=== PATIENT | female | born 1960 | race Caucasian/White ===

== ENCOUNTER → 2023-07-06 08:02 | Outpatient (REF) | payer BC, SELFPAY | LOC: WDC 08:02 | PROVIDERS: ATTENDING PHYSICIAN Obstetrics & Gynecology; FAMILY PHYSICIAN Family Medicine | DX: Z12.31 Encounter for screening mammogram for malignant neoplasm of breast (principal) | CPT/HCPCS: 77063; 77067 ==

== ENCOUNTER → 2024-01-01 14:26 | Outpatient (REF) | payer BC, SELFPAY | LOC: RCS 14:26 | PROVIDERS: ATTENDING PHYSICIAN Internal Medicine Cardiovascular Disease; FAMILY PHYSICIAN Family Medicine | DX: I49.3 Ventricular premature depolarization (principal) | CPT/HCPCS: 93306 ==

== ENCOUNTER → 2024-01-09 08:16 | Outpatient (REF) | payer BC, SELFPAY ==
[2024-01-09 11:15] LABS: ALT (SGPT) 29 U/L (0-35); AST (SGOT) 32 U/L (14-36); Albumin 4.8 g/dl (3.5-5.0); Alkaline Phosphatase 122 U/L (38-126); Blood Urea Nitrogen 18 mg/dl (7-17); Calcium 9.9 mg/dl (8.4-10.2); Carbon Dioxide 25 mmol/L (22-30); Chloride 106 mmol/L (98-107); Glucose 99 mg/dl (70-99); HDL Cholesterol 79 mg/dl; LDL Cholesterol, Calculated 187 mg/dl; Potassium 4.7 mmol/L (3.5-5.1); Sodium 145 mmol/L (135-145); Total Bilirubin 0.9 mg/dl (0.2-1.3); Total Cholesterol 303 mg/dl (50-199); Total Protein 7.7 g/dl (6.3-8.2); Triglyceride 189 mg/dl (10-149); Very Low Density Lipoprotein 37 mg/dl (0-30); eGFR > 60.00
== END ==
LOC: REG 08:16
PROVIDERS: ATTENDING PHYSICIAN Family Medicine
DX: Z00.00 Encounter for general adult medical examination without abnormal findings (principal); K75.81 Nonalcoholic steatohepatitis (NASH); F33.1 Major depressive disorder, recurrent, moderate; I49.3 Ventricular premature depolarization; Z85.048 Personal history of other malignant neoplasm of rectum, rectosigmoid junction, and anus
CPT/HCPCS: 36415; 80053; 80061

== ENCOUNTER 2024-03-19 06:16 | Day surgery (SDC) | payer BC, SELFPAY ==
[2024-03-10 09:03] VITALS: BMI 26.8
--- NOTE | 2024-03-10 09:15 | HPS.HSE ---
Family Physician
-
Family Physician: Shailesh Curry
Chief Complaint
-
Frequent PVCs.
History of Present Illness
The patient is a 64 year old female presenting today with frequent PVCs. The patient reports a history of significant palpitations secondary to this diagnosis. Her most recent 5 day event monitor in November 2022 demonstrated a 20% PVC burden.
She is currently off calcium channel blockers and rate controlling agents. She notes that her palpitations greatly interfere with her activities of daily living and overall impact her quality of life. She is interested in pursuing an EP study with
possible PVC ablation. She denies any current complaints today such as chest pain, shortness of breath, nausea, vomiting, diarrhea, lightheadedness, dizziness, cough, sore throat, or fever.
Medical History
Past Medical History
Past Medical History: Reports Other
Additional Past Medical History:
1. Frequent PVCs.
2. Hyperlipidemia.
3. Mild aortic regurgitation.
4. Chronic dyspnea with exertion.
5. Colon polyps.
6. Diverticulosis.
7. Cholelithiasis, asymptomatic.
8. Fatty liver disease.
9. Hemorrhoids, status post hemorrhoidectomy.
10. Carcinoid tumor of rectum, status post resection 2011.
11. Vertigo.
12. Osteopenia.
13. Anxiety.
14. History of tobacco abuse.
Past Surgical History: Reports Other
Additional Past Surgical History:
1. Carcinoid tumor resection.
2. Hemorrhoidectomy.
3. .
4. Colonoscopy x5.
Social History
Tobacco: Former Smoker (She is a former 1 pack per day cigarette smoker who quit tobacco altogether at 44 years of age. )
Alcohol: Other (Rare. )
Personal:
Living: Other (She lives with her in a 2 story home. )
Family History
Family History: Not pertinent
Allergies / Home Medications
Allergy/Medication List:
Home medications:
1. Ibuprofen 400 mg p.o. every 6 hours as needed.
2. Lorazepam 0.5 mg p.o. daily as needed.
3. Sertraline 150 mg p.o. daily.
Allergies: No known drug allergies.
Review of Systems
-
A 12 point ROS was completed and negative except as noted: Yes
Physical Exam
Vital Signs
Blood pressure 129/84, heart rate 64, respirations 18, pulse ox 99% on room air.
Height 5 feet, 2 inches. Weight 66.3 kg. BMI 26.7.
Physical Exam
General: Well Developed, Well Nourished and No Apparent Distress
HEENT: NormoCephalic, Moist mucous membranes, Atraumatic and PERRLA
Respiratory: Clear
Cardiac: Regular Rhythm (with frequent ectopy. )
GI: Soft, Non Tender and Non Distended
Musculoskeletal: Normal Gait & Station
Skin: Warm and Dry
Neuro: AO x 3 and Nonfocal/grossly intact
Laboratory Results
-
DIAGNOSTIC STUDIES as of 03/10/2024: White blood cell count 7.6. Hemoglobin 14.3. Platelet count 286,000. Sodium 142. Potassium 4.3. BUN 19. Creatinine 0.7. Glucose 99. Magnesium 2.1. Calcium 10.1. AST 30. ALT 30. Albumin 4.9.
EKG 03/10/2024: Sinus rhythm with frequent PVCs. ST and T wave abnormality, consider anterior ischemia.
Echocardiogram 01/01/2024: Normal left ventricular size, wall thickness and systolic function. No regional wall motion abnormalities are seen. LV ejection fraction is 55%. Mild aortic regurgitation. Compared to echocardiogram from November 16, 2022,
there is no significant change.
Nuclear stress test 11/06/2022: Negative for ischemia. Fixed defect in the apical anterior and apex segments consistent with soft tissue attenuation. The ejection fraction is 54%. This is a low risk study.
Impression/Plan
-
IMPRESSION/PLAN:
1. Frequent PVCs: The patient is in need of an EP study and possible PVC ablation with Dr. Marquise Dwyer on 03/19/2024. The benefits and risks of the procedure have been explained to the patient. The patient understands these risks and wishes to
proceed.
[2024-03-10 09:33] LABS: % Basophils 0.8 % (0-2); % Eosinophils 4.7 % (0-6); % Immature Granulocytes 0.4 % (0-0.5); % Monocytes 5.1 % (1.7-9.3); Absolute Basophils 0.1 10^3/uL (0-0.2); Absolute Eosinophils 0.4 10^3/uL (0-0.7); Absolute Lymphocytes 2.8 10^3/uL (1.2-3.4); Absolute Monocytes 0.4 10^3/uL (0.1-0.6); Hematocrit 41.7 % (37.0-47.0); Hemoglobin 14.3 g/dL (12.0-16.0); Mean Corp Hgb Conc. 34.3 g/dL (33.0-37.0); Mean Corpuscular Hgb 29.3 pg (27.0-31.0); Mean Corpuscular Volume 85.5 fL (81.0-99.0); Mean Platelet Volume 10.3 fL (7.4-10.4); Nucleated Red Blood Cells % 0 %; Platelet Count 286 10^3/uL (130-400); Red Blood Cell Count 4.88 10^6/uL (4.20-5.40); Red Cell Dist. Width 13.1 % (11.5-14.5); White Blood Cell Count 7.6 10^3/uL (4.8-10.8)
[2024-03-10 10:16] LABS: ALT (SGPT) 30 U/L (0-35); AST (SGOT) 30 U/L (14-36); Albumin 4.9 g/dl (3.5-5.0); Alkaline Phosphatase 128 U/L (38-126); Blood Urea Nitrogen 19 mg/dl (7-17); Calcium 10.1 mg/dl (8.4-10.2); Carbon Dioxide 24 mmol/L (22-30); Chloride 105 mmol/L (98-107); Estimated Creatinine Clearance 72 ml/min; Glucose 99 mg/dl (70-99); Magnesium 2.1 mg/dl (1.6-2.3); Potassium 4.3 mmol/L (3.5-5.1); Sodium 142 mmol/L (135-145); Total Bilirubin 0.7 mg/dl (0.2-1.3); Total Protein 7.9 g/dl (6.3-8.2); eGFR > 60.00
[2024-03-19] VITALS (13 sets, daily range): BP systolic 110–151; BP diastolic 71–103; BMI 26.5
[2024-03-19 08:53] LABS: ACT-LR - POC 374 Seconds (116-155)
[2024-03-19 09:24] LABS: ACT-LR - POC 223 Seconds (116-155)
[2024-03-19 09:44] LABS: ACT-LR - POC 316 Seconds (116-155)
[2024-03-19 09:58] LABS: ACT-LR - POC 268 Seconds (116-155)
[2024-03-19 10:19] LABS: ACT-LR - POC 335 Seconds (116-155)
[2024-03-19 10:33] LABS: ACT-LR - POC 318 Seconds (116-155)
[2024-03-19 10:51] LABS: ACT-LR - POC 366 Seconds (116-155)
[2024-03-19 11:05] LABS: ACT-LR - POC 308 Seconds (116-155)
[2024-03-19 11:31] LABS: ACT-LR - POC 128 Seconds (116-155)
--- NOTE | 2024-03-19 12:30 | PTCARENOTE ---
Rec'd report from [place] in the EP lab. Rec'd pt in bed AAOx3, drowsy but easily arousable to voice. Pt's VS stable upon arrival w/HR in the 50's-60's & BP 126/79. Pt is SR/SB w/a prol QT on court recording monitor & verified by EKG upon arrival to the
floor. Pt w/no c/o CP or SOB. Pt's R debbie site w/fig of [address] & dressing C/D/I. Pt w/no signs or symptoms of bleeding or hematoma at the R groin site. Pt voided 350 mLs of clear yellow urine on the bed duke on arrival. Bedrest & RLE
restrictions discussed w/pt & spouse. Pt verbalized her understanding. Pt w/call duran within reach & no addtl needs at this time.
--- NOTE | 2024-03-19 13:01 | ITS.CL.ABL ---
Cork Insulation Setter - Ablation
Ablation
Procedure Report:
Primary Superintendent Mechanical: Italo Elizalde MD
Procedure Date: 03/19/2024
Patient History:
The patient is a pleasant 64-year-old female with a past medical history significant for PVCs, hypertension, nonalcoholic fatty liver disease, hypercholesterolemia, carcinoid tumor of the rectum status post resection. PVC morphology in office
appears to be left bundle morphology inferior axis with positive lead I with a V3/V4 transition representing posterior RVOT versus right coronary cusp. Patient with symptomatic PVCs with a burden on event monitor greater than 20%.
See H&P for complete history.
Indication:
Symptomatic PVCs
PVC burden greater than 20%
Procedure
X VT Ablation procedure (44441) -- includes 3D mapping
X+LA/CS pacing (87871)
X+Intracardiac ultrasound (36628)
[ ]+Transseptal (53246)
[ ]+IV drug (46837)
[ ]+Other Arrhythmia (11464)
Method
NPO status confirmed. Grounding pad applied. Defibrillator pads applied. Continuous surface ECG, pulse oximetry, and blood pressure were monitored. Procedure was performed under general anesthesia, with anesthesia services.
Both groins were clipped, prepped with Chloraprep, and draped in sterile fashion. Time out was called. Local anesthesia administered. The right femoral vein was accessed for catheter placement, using ultrasound guidance, micro-puncture needle/wire,
and modified seldinger technique. 3 sheaths were placed in the right femoral vein (9Fr upsized to 11.5 steerable sheath, 10 Fr, and 7 Fr). Arterial access was obtained using ultrasound guidance and a 5 Fr sheath was placed which was upsized to a
braided 9Fr sheath.
The following catheters were used:
X Tacticath SE (D/F-curve) ablation catheter
X Viewflex 9Fr ICE catheter
X Inquiry decapolar 6Fr diagnostic catheter
[ ] 6Fr quadrapolar diagnostic catheter
X HD Grid multielectrode mapping catheter
Following arterial access, heparin was given to achieve and maintain a target ACT of 300-400 seconds.
ICE and 3D mapping was performed to identify relevant cardiac structures. A baseline trace basal pericardial effusion was noted on ICE. This remained unchanged throughout procedure and at procedure completion. A careful 3D map was created to assess
for regions of low-voltage and abnormal electrogram signals (late potentials, fractionation). See synopsis for details
Catheter-based radiofrequency ablation was performed with careful monitoring of temperature, impedance, and power. Target power was 20-25 [place]. See synopsis for details.
At procedure conclusion, ICE was used to rule out pericardial effusion. Hemostasis was obtained with figure of eight suture and manual pressure. Protamine was used for reversal.
Estimated Blood Loss
< 5 mL
Complications
None
Procedure Synopsis:
Following access as mentioned above, decapolar catheter was placed in the coronary sinus. Next, through the 9 Albanian short sheath, HD grid was advanced into the right atrium. RVOT was mapped using the HD grid catheter. There was evidence of
fractionation of signal, early onset 25 to 35 ms pre-QRS at the septal/posterior portion of the RVOT. There is no evidence of his signal on mapping catheter. 9 Albanian short sheath with this exchanged for an 11.5 Albanian steerable sheath and HD grid
was reintroduced to the RVOT for more stable mapping. Following extensive electroanatomic mapping, HD grid catheter was removed. During mapping, it was noted patient developed a transient right bundle branch block. TactiCath DF SE was advanced
through the steerable sheath into the RVOT. Ablation was performed in the area of QS signal on unipolar electrogram, -25 to -35 pre-QRS fractionation. Target power was 20 to 25 W with careful monitoring of impedance, temperature, power. There was
early suppression of PVCs roughly 15 to 30 seconds into ablation however there was recurrence. Given persistence of recurrence despite ablation in this region, short 5 Albanian arterial sheath was upsized to a 9 Albanian braided sheath. TactiCath was
advanced under fluoroscopy and ICE guidance into the LVOT. Mapping was performed in the LVOT. Below the valve, there was intermittent AV Wenke block and therefore mapping was not performed or ablation performed below the valve. Mapping was
performed in the coronary cusps and left coronary cusp left right coronary cusp commissure. Signal at the coronary cusp commissure was on time to -5 ms pre-QRS with a QS unipolar signal. Visualization of the coronary ostia was noted to ensure
ablation catheter was not near coronaries prior to or during ablation. Careful ablation was performed in this region with no change to PVC. Therefore, ablation catheter was removed from the LVOT and mapping once more performed in the RVOT. In the
RVOT, signal was found slightly more anterior to previously ablated region with a -44 ms pre-QRS fractionated signal with a QS component on the unipolar signal. RFA was performed in this region at 25 W with careful monitoring of temperature,
impedance, and power with immediate suppression of PVCs. Electrophysiology study was performed after this demonstrating intact AV conduction. Right bundle branch block was also present at completion of procedure. Intracardiac ultrasound
demonstrated no change to preprocedure imaging and to trace basal pericardial effusion. No PVCs were noted 30 minutes after ablation. Procedure was completed and hemostasis achieved as noted above. Patient returned to recovery area in stable
condition.
Fluoroscopy: 10.0 minutes; 21.11 mGy; DAP 3.01
Baseline Intervals:
Rhythm: SR
OR: 138 ms
QRS: 79 ms
QT: 424 ms
QTc: 447 ms
Post-Procedure Intervals:
OR: 250 ms
QRS: 148 ms
QT: 424 ms
QTc: 459 ms
AVWB: 570 ms
AVERP: 650/480 ms
Recommendations
- Bedrest with straight-leg precautions as ordered
- Admit with anticipate discharge home tomorrow after overnight observation
- Resume home medications as indicated
- Follow-up in office as scheduled
Marquise Dwyer,
Clinical Cardiac Rn Heart
cc: Shailesh Curry MD; Italo Elizalde MD
--- NOTE | 2024-03-19 14:15 | CM ---
Chart reviewed. Patient is independent of ADLS, lives with her in a 2 STH, 0 CAMILO, 0 DME. Plan is for the patient to return home. CM to follow
--- NOTE | 2024-03-19 16:49 | PTCARENOTE ---
Clipped R groin fig of 8 suture at 1550. New sterile gauze dressing applied. Pt OOB to BR & then CH at 1620. No signs or symptoms of bleeding or hematoma after ambulation. Pt w/no c/o pain. Assisted pt w/calling for dinner. Call duran within reach.
Plan of care ongoing.
[2024-03-19] MEDS: TYLENOL 650 MG PO (18:04)
[2024-03-19] MEDS: ATIVAN 0.5 MG PO (22:17)
--- NOTE | 2024-03-19 23:16 | PTCARENOTE ---
assumed care of patient at the change of shift. AAOx3. denies any pain. requested Ativan, given, see mar. SB-SR on tele, 50s-60s. bp stable. ambulating in the room independently. R groin site-CDI. + pulses/no edema. reviewed plan of care with
patient and verbalized understanding. call duran within reach.
[2024-03-20 04:31] VITALS: BP 143/123
[2024-03-20 04:33] VITALS: BP 126/78
[2024-03-20 05:36] LABS: Hematocrit 37.3 % (37.0-47.0); Hemoglobin 12.5 g/dL (12.0-16.0); Mean Corp Hgb Conc. 33.5 g/dL (33.0-37.0); Mean Corpuscular Hgb 30.3 pg (27.0-31.0); Mean Corpuscular Volume 90.5 fL (81.0-99.0); Mean Platelet Volume 10.5 fL (7.4-10.4); Platelet Count 219 10^3/uL (130-400); Red Blood Cell Count 4.12 10^6/uL (4.20-5.40); Red Cell Dist. Width 13.2 % (11.5-14.5); White Blood Cell Count 8.1 10^3/uL (4.8-10.8)
[2024-03-20 06:00] LABS: Blood Urea Nitrogen 9 mg/dl (7-17); Calcium 8.9 mg/dl (8.4-10.2); Carbon Dioxide 25 mmol/L (22-30); Chloride 106 mmol/L (98-107); Estimated Creatinine Clearance 83 ml/min; Glucose 89 mg/dl (70-99); Magnesium 2.1 mg/dl (1.6-2.3); Potassium 3.9 mmol/L (3.5-5.1); Sodium 144 mmol/L (135-145); eGFR > 60.00
[2024-03-20 07:38] VITALS: BP 149/136
[2024-03-20 07:40] VITALS: BP 134/73
[2024-03-20] MEDS: ZOLOFT 150 MG PO (08:37)
--- NOTE | 2024-03-20 09:45 | W.PN.CARDCBS ---
Addendum entered and electronically signed by Parker Simmons MD 03/20/24 09:59:
Patient seen and examined
Agree with ARMATURE STRAIGHTENER note and assessment
Agree with ARMATURE STRAIGHTENER plan
Examination:
Telemetry reviewed without PVC
Cor regular without murmur
Right groin without hematoma or bruit
Remainder of exam per WASHERETTE MACHINE OPERATOR note
64-year-old female with a past medical history significant for PVCs, hypertension, nonalcoholic fatty liver disease, hypercholesterolemia, carcinoid tumor of the rectum status post resection. PVC morphology in office appears to be left bundle
morphology inferior axis with positive lead I with a V3/V4 transition representing posterior RVOT versus right coronary cusp. Patient with symptomatic PVCs with a burden on event monitor greater than 20%.
Impression:
Symptomatic PVC's
post PVC ablation 03/19/24
HTN
Hyperlipidemia
RBBB
NAFLD
Carcinoid tumor rectal post resection
Depression
Plan:
post ablation feels good
groin stable
tele SR, RBBB, no sig ectopy
c/o neck pain most like positioning on table
OK to use ibuprofen tonight for pain
Activity restrictions reviewed
f/u DCA 2 mo
Home today
Original Note:
Today's Communication / Plan
-
stable for d/c home
Impression / Plan
-
PCP: Shailesh Curry MD
CDY: Italo Elizalde MD
64-year-old female with a past medical history significant for PVCs, hypertension, nonalcoholic fatty liver disease, hypercholesterolemia, carcinoid tumor of the rectum status post resection. PVC morphology in office appears to be left bundle
morphology inferior axis with positive lead I with a V3/V4 transition representing posterior RVOT versus right coronary cusp. Patient with symptomatic PVCs with a burden on event monitor greater than 20%.
Impression:
Symptomatic PVC's
post PVC ablation 03/19/24
HTN
Hyperlipidemia
RBBB
NAFLD
Carcinoid tumor rectal post resection
Depression
Plan:
post ablation feels good
groin stable
tele SR, RBBB, no sig ectopy
c/o neck pain most like positioning on table
OK to use ibuprofen tonight for pain
Activity restrictions reviewed
f/u DCA 2 mo
Home today
Progress Note - Goring Cutter
Subjective
Date of Service: March 20, 2024
denies cp, sob, mild neck pain
Objective
Labs:
03/20/24 04:31
03/20/24 04:31
Labs
Hgb 12.5 g/dL (12.0-16.0) 03/20/24 04:31
Hct 37.3 % (37.0-47.0) 03/20/24 04:31
Plt Count 219 10^3/uL (130-400) 03/20/24 04:31
Sodium 144 mmol/L (135-145) 03/20/24 04:31
Potassium 3.9 mmol/L (3.5-5.1) 03/20/24 04:31
BUN 9 mg/dl (7-17) 03/20/24 04:31
Creatinine 0.6 mg/dL (0.6-1.0) 03/20/24 04:31
Glucose 89 mg/dl (70-99) 03/20/24 04:31
Vital Signs and I&O:
Vital Signs
Temp Pulse Resp BP Pulse Ox
98.8 F 62 20 134/73 99
03/20/24 07:36 03/20/24 08:30 03/20/24 07:36 03/20/24 07:40 03/20/24 07:36
Vital Signs
Temp Pulse Resp BP Pulse Ox
98.8 F 62 20 134/73 99
03/20/24 07:36 03/20/24 08:30 03/20/24 07:36 03/20/24 07:40 03/20/24 07:36
Intake & Output
03/18/24 03/19/24 03/20/24 03/21/24
06:59 06:59 06:59 06:59
Intake Total 880 / 880
Output Total 350 / 350
Balance 530 / 530
Physical Exam
Physical Exam
NAD< AOX3
S1, S2, RRR
CTAB< non labored
SNTND Bsx4
R fem site c/d/i no HT, soft
--- NOTE | 2024-03-20 11:35 | W.DS.TRANS ---
DC Summary - Electrical Equipment Assembler
-
Discharge Instructions:
Discharge Diagnosis/Procedures PVC post ablation
Diet Low Sodium
Driving Restrictions No driving for 24 hours
Instructions:
Stand-Alone Forms: DC Instructions- Cath/EP Lab
Changes to Home Medications: No
Discharge Medications:
DC Medications w/original date entered in [employer]
ibuprofen 200 mg tablet 400 mg PO Q6HPRN PRN pain 03/05/24
lorazepam 0.5 mg tablet 0.5 mg PO DAILY PRN anxiety 03/05/24
sertraline 100 mg tablet 150 mg PO DAILY 03/05/24
Home Medication Changes
Pending Results: No
--- NOTE | 2024-03-20 11:46 | PTCARENOTE ---
Pt seen by . Telemetry and IV device removed. Discharge instructions reviewed with pt regarding activity and driving guidelines, wound care, medications , reproting cares and concerns and follow up appt's. very good understanding
verbalized. Pt escorted out via wheelchair and discharged to home.
== END 2024-03-20 11:15 | disposition home or self-care (01) ==
LOC: CATH 06:16
PROVIDERS: Nurse Practitioner Adult Health; ATTENDING PHYSICIAN Internal Medicine Cardiovascular Disease; FAMILY PHYSICIAN Family Medicine; OTHER PHYSICIAN Internal Medicine Cardiovascular Disease
DX: I47.20 Ventricular tachycardia, unspecified (principal); R00.2 Palpitations; R06.00 Dyspnea, unspecified; I35.1 Nonrheumatic aortic (valve) insufficiency; R06.09 Other forms of dyspnea; Z86.0100 Personal history of colon polyps, unspecified; K57.90 Diverticulosis of intestine, part unspecified, without perforation or abscess without bleeding; K76.0 Fatty (change of) liver, not elsewhere classified; K64.9 Unspecified hemorrhoids; R42 Dizziness and giddiness; M85.80 Other specified disorders of bone density and structure, unspecified site; F41.9 Anxiety disorder, unspecified; Z87.891 Personal history of nicotine dependence; Z79.899 Other long term (current) drug therapy; I45.10 Unspecified right bundle-branch block; I10 Essential (primary) hypertension; E78.00 Pure hypercholesterolemia, unspecified; F32.A Depression, unspecified; I31.39 Other pericardial effusion (noninflammatory); Z87.19 Personal history of other diseases of the digestive system
CPT/HCPCS: 93662; C1732; C1894; C1766; C2630; C1892; 36415; 80048; 80053; 83735; 85025; 85027; 85347; 86850; 86900; 86901; 93005; 93623; 93654

== ENCOUNTER → 2024-07-10 08:28 | Outpatient (REF) | payer MEDICARE, SELFPAY | LOC: WDC 08:28 | PROVIDERS: ATTENDING PHYSICIAN Obstetrics & Gynecology; FAMILY PHYSICIAN Family Medicine | DX: Z12.31 Encounter for screening mammogram for malignant neoplasm of breast (principal) | CPT/HCPCS: 77063; 77067 ==